=== PATIENT | female | born 1945 | race Caucasian/White ===

== ENCOUNTER 2019-09-24 08:23 | Emergency (ER) | payer OTHER ==
[~2019-09-24] VITALS: Ht 175.3 cm; Wt 97.5 kg
[2019-09-24] MEDS ORDERED: ATACAND HCT 161 EACH (08:37)
[2019-09-24] MEDS ORDERED: AMLODIPINE 2.5 (08:38)
[2019-09-24] MEDS ORDERED: SYNTHROID150 MCG (08:38)
[2019-09-24] MEDS ORDERED: NABUMETONE500 MG (08:39)
[2019-09-24] MEDS ORDERED: HORIZANT300 MG (08:40)
== END 2019-09-24 09:10 | disposition home or self-care (01) ==
LOC: ER 08:23
DX: M54.5 Low back pain (principal)

== ENCOUNTER 2019-09-27 07:29 | Outpatient (CLI) | payer OTHER ==
[~2019-09-27 07:29] MED LIST: AMLODIPINE 2.5; ATACAND HCT 161 EACH; HORIZANT300 MG; NABUMETONE500 MG; SYNTHROID150 MCG
== END 2019-09-27 07:36 | disposition home or self-care (01) ==
LOC: MRI 07:29
DX: M54.5 Low back pain (principal)
CPT/HCPCS: 72148